=== PATIENT | female | born 1975 | race Caucasian/White ===

== ENCOUNTER 2018-03-06 09:12 | Emergency (ER) | payer MEDICAID, OTHER ==
[~2018-03-06] VITALS: Ht 162.6 cm; Wt 63.5 kg
[~2018-03-06 09:12] MED LIST: ALPR0.5T7 PO; NOR10T PO; OMEP20TA PO; SUCR1TAB PO
[2018-03-06 09:58] LABS: Basophils # (auto) 0.1 uL; Basophils % (auto) 0.7 % (0.0-2.0); Eosinophils # (auto) 0.1 uL; Eosinophils % (auto) 0.6 % (0.0-7.0); Hematocrit 48.5 % (36.0-46.0); Hemoglobin 16.6 g/dL (12.2-16.2); Lymphocytes # (auto) 1.7 uL; Lymphocytes % (auto) 15.4 % (10.0-50.0); Mean Corpuscular Hemoglobin 30.5 pg (28.0-32.0); Mean Corpuscular Hgb Conc. 34.2 g/dL (32.0-36.0); Mean Corpuscular Volume 89.3 fL (80.0-100.0); Monocytes % (auto) 9.5 % (0.0-12.0); Neutrophils # (auto) 8.1 uL; Neutrophils % (auto) 73.8 % (37.0-80.0); Nucleated Red Blood Cells % 0.1 %; Platelet Count (auto) 392 10^3/uL (140-450); Red Blood Cells 5.44 10^6/uL (4.0-5.20); Red Cell Distribution Width 15.2 % (11.8-14.3)
[2018-03-06 10:18] LABS: Albumin 4.3 g/dL (3.4-5.0); Calcium 9.6 mg/dL (8.5-10.1)
[2018-03-06 10:22] LABS: Bilirubin, Total 0.7 mg/dL (0.2-1.0); Total Protein 8.6 g/dL (6.4-8.2)
[2018-03-06 10:42] LABS: Urine Bacteria NONE SEEN /hpf (None Seen); Urine Blood 3+ /uL (Negative); Urine Mucus FEW (None Seen); Urine Specific Gravity 1.036 (1.001-1.035); Urine WBC 2 /hpf (0 - 5)
[2018-03-06] MEDS ORDERED: SODIUM CHLORIDE 0.9% 1,000 ML IV ONE ×2 (10:47)
[2018-03-06] MEDS ORDERED: LIDOCAINE VISCOUS 2% 15ML UD PO ONE (11:00)
[2018-03-06] MEDS ORDERED: ALUM & MAG HYDROX-SIMETH LIQ(MAALOX) 30 ML PO ONE (11:00)
[2018-03-06] MEDS ORDERED: DONNATAL 5ml ORAL Elix (BELLADONNA ALK-PHENOBARB) PO ONE (11:00)
[2018-03-06 11:33] VITALS: BP 156/96
[2018-03-06] MEDS ORDERED: POTASSIUM EFFERVESENT TAB 25 MEQ PO ONE (11:45)
[2018-03-06] MEDS ORDERED: KETOROLAC TROMETH 30 MG/ML 1ML VIAL IV ONE (12:00)
[2018-03-06] MEDS ORDERED: cefTRIAXone 1GM/50ML D5W 50 ML IV ONE (12:00)
[2018-03-06] MEDS ORDERED: ONDANSETRON HCL 4 MG/2 ML VIAL IV ONE (12:15)
== END 2018-03-06 13:32 | disposition home or self-care (01) ==
LOC: ER 09:12
DX: E86.0 Dehydration (principal); E87.6 Hypokalemia; R11.2 Nausea with vomiting, unspecified; J40 Bronchitis, not specified as acute or chronic; K21.9 Gastro-esophageal reflux disease without esophagitis; Z79.891 Long term (current) use of opiate analgesic; Z79.899 Other long term (current) drug therapy
CPT/HCPCS: 36415; 74176; 80053; 81001; 85025; 96361; 96365; 96375; 99285; J0696; J1885; J2405

== ENCOUNTER 2018-07-18 06:38 | Emergency (ER) | payer SELFPAY ==
[~2018-07-18] VITALS: Ht 167.6 cm; Wt 59.0 kg
[2018-07-18 07:27] LABS: Urine Pregnacy Test Negative (Negative)
[2018-07-18 07:29] LABS: Urine Amorphous Crystal FEW /hpf (None Seen); Urine Bacteria NONE SEEN /hpf (None Seen); Urine Blood 2+ /uL (Negative); Urine Mucus MODERATE (None Seen); Urine Specific Gravity 1.034 (1.001-1.035); Urine WBC 3 /hpf (0 - 5)
[2018-07-18 07:35] LABS: Amphetamine Screen, Urine NEGATIVE (NEGATIVE); Barbiturate Scree,Urine NEGATIVE (NEGATIVE); Benzodiazephine Screen, Urine POSITIVE (NEGATIVE); Cannabinoid Screen, Urine POSITIVE (NEGATIVE); Cocaine Screen, Urine NEGATIVE (NEGATIVE); Opiate Scree,Urine NEGATIVE (NEGATIVE); Phencyclidine Screen, Urine NEGATIVE (NEGATIVE)
[2018-07-18 08:06] LABS: Basophils # (auto) 0.1 uL; Basophils % (auto) 0.3 % (0.0-2.0); Eosinophils # (auto) 0 uL; Hematocrit 45.7 % (36.0-46.0); Hemoglobin 15.3 g/dL (12.2-16.2); Mean Corpuscular Hemoglobin 31.1 pg (28.0-32.0); Mean Corpuscular Hgb Conc. 33.6 g/dL (32.0-36.0); Mean Corpuscular Volume 92.5 fL (80.0-100.0); Monocytes # (auto) 0.9 uL; Monocytes % (auto) 4.8 % (0.0-12.0); Neutrophils # (auto) 17.3 uL; Neutrophils % (auto) 89.9 % (37.0-80.0); Nucleated Red Blood Cells % 0.1 %; Platelet Count (auto) 401 10^3/uL (140-450); Red Blood Cells 4.94 10^6/uL (4.0-5.20); Red Cell Distribution Width 13.5 % (11.8-14.3); White Blood Cell 19.2 10^3/uL (4.4-10.8)
[2018-07-18 08:28] LABS: Albumin 4.5 g/dL (3.4-5.0); BUN/Creatinine Ratio 19.8; Calcium 9.5 mg/dL (8.5-10.1); Magnesium 2.4 mg/dL (1.6-2.6); Potassium 3.2 mmol/L (3.5-5.1)
[2018-07-18 08:30] LABS: Bilirubin, Total 0.6 mg/dL (0.2-1.0); Total Protein 8.4 g/dL (6.4-8.2)
[2018-07-18] MEDS ORDERED: SODIUM CHLORIDE 0.9% 1,000 ML IV ONE ×2 (08:55)
[2018-07-18] MEDS ORDERED: PIPERACILLIN-TAZOB 3.375GM 100 ML IV ONE (09:00)
[2018-07-18] MEDS ORDERED: POTASSIUM EFFERVESENT TAB 25 MEQ PO ONE (09:00)
[2018-07-18] MEDS ORDERED: ONDANSETRON HCL 4 MG/2 ML VIAL ONE (09:50)
[2018-07-18] MEDS ORDERED: ONDANSETRON HCL 4 MG/2 ML VIAL IV ONE (10:00)
[2018-07-18] MEDS ORDERED: PROMETHAZINE HCL 25 MG/ML 1ML ONE (10:35)
[2018-07-18] MEDS ORDERED: PROMETHAZINE HCL 25 MG/ML 1ML IV ONE (10:45)
[2018-07-18] MEDS ORDERED: KETOROLAC TROMETH 30 MG/ML 1ML VIAL IV ONE (11:00)
[2018-07-18] MEDS ORDERED: metroNIDAZOLE 500MG/100ML 100 ML IV ONE (11:00)
[2018-07-18] MEDS ORDERED: IBUPROFEN 800 MG TAB PO ONE (12:30)
[2018-07-18 12:38] VITALS: BP 128/81
== END 2018-07-18 13:21 | disposition home or self-care (01) ==
LOC: ER 06:38
DX: K52.9 Noninfective gastroenteritis and colitis, unspecified (principal); F12.10 Cannabis abuse, uncomplicated; F17.210 Nicotine dependence, cigarettes, uncomplicated; E78.5 Hyperlipidemia, unspecified; Z98.51 Tubal ligation status; Z87.11 Personal history of peptic ulcer disease
CPT/HCPCS: 36415; 74176; 80053; 80307; 81001; 81025; 83605; 83735; 85025; 87040; 96365; 96367; 96375; 99284; J1885; J2405; J2543; J2550; J3490; J7030

== ENCOUNTER 2018-12-03 10:09 | Inpatient (IN) | payer OTHER ==
[~2018-12-03] VITALS: Ht 162.6 cm; Wt 56.5 kg
[2018-12-03 10:41] LABS: Basophils # (auto) 0.1 uL; Eosinophils # (auto) 0 uL; Hemoglobin 12.1 g/dL (12.2-16.2); Lymphocytes # (auto) 1.7 uL; Monocytes # (auto) 0.5 uL
[2018-12-03 10:43] LABS: Basophils % (auto) 0.6 % (0.0-2.0); Eosinophils % (auto) 0.3 % (0.0-7.0); Lymphocytes % (auto) 12.3 % (10.0-50.0); Mean Corpuscular Hemoglobin 29.7 pg (28.0-32.0); Mean Corpuscular Hgb Conc. 33.6 g/dL (32.0-36.0); Mean Corpuscular Volume 88.5 fL (80.0-100.0); Monocytes % (auto) 3.8 % (0.0-12.0); Neutrophils # (auto) 11.3 uL; Red Blood Cells 4.07 10^6/uL (4.0-5.20); White Blood Cell 13.6 10^3/uL (4.4-10.8)
[2018-12-03 10:45] LABS: Platelet Count (auto) 466 10^3/uL (140-450)
[2018-12-03 11:02] LABS: Urine WBC None Seen /hpf (0 - 5)
[2018-12-03 11:04] LABS: Albumin 3.3 g/dL (3.4-5.0); Calcium 8.2 mg/dL (8.5-10.1); Potassium 3.1 mmol/L (3.5-5.1)
[2018-12-03 11:07] LABS: Bilirubin, Total 0.3 mg/dL (0.2-1.0); Total Protein 6.4 g/dL (6.4-8.2)
[2018-12-03] MEDS ORDERED: SODIUM CHLORIDE 0.9% 1,000 ML IV ONE (11:08)
[2018-12-03] MEDS ORDERED: SODIUM CHLORIDE 0.9% 500 ML IVB ONE (11:08)
[2018-12-03 11:09] LABS: Urine Amorphous Crystal MOD /hpf (None Seen); Urine Bacteria NONE SEEN /hpf (None Seen); Urine Blood Negative /uL (Negative); Urine Mucus FEW (None Seen); Urine Specific Gravity 1.016 (1.001-1.035)
[2018-12-03] MEDS ORDERED: LIDOCAINE VISCOUS 2% 15ML UD PO ONE (11:15)
[2018-12-03] MEDS ORDERED: ALUM & MAG HYDROX-SIMETH LIQ(MAALOX) 30 ML PO ONE (11:15)
[2018-12-03] MEDS ORDERED: DONNATAL 5ml ORAL Elix (BELLADONNA ALK-PHENOBARB) PO ONE (11:15)
[2018-12-03] MEDS ORDERED: FAMOTIDINE 20 MG TAB PO ONE (11:15)
[2018-12-03] MEDS ORDERED: HYDROmorphone HCL 2 MG/ML VL IV ONE (11:15)
[2018-12-03] MEDS ORDERED: ONDANSETRON HCL 4 MG/2 ML VIAL IV ONE (11:30)
[2018-12-03 11:46] LABS: Beta HCG, Quantitative < 1 mlU/mL (1-3); Thyroid Stimulating Hormone 0.64 uIU/mL (0.358-3.74)
[2018-12-03] MEDS ORDERED: IOHEXOL 300 MG/ML 100ML BOTTLE IJ ONE (11:49)
[2018-12-03] MEDS ORDERED: GASTROGRAFIN 30 ML SOL ONE (11:50)
[2018-12-03] MEDS: PROMETHAZINE HCL 25 MG/ML 1ML IV PRN ×3 (12:45→22:35)
[2018-12-03] MEDS ORDERED: cloNIDine HCL 0.1 MG TAB PO ONE (13:30)
[2018-12-03] MEDS ORDERED: DexAMETHasone SOD PHOS 4 MG/1ML SDV INJ IV ONE (17:00)
[2018-12-03] MEDS ORDERED: metroNIDAZOLE 500MG/100ML 100 ML IV ONE (17:00)
[2018-12-03] MEDS ORDERED: cefTRIAXone 1GM/50ML D5W 50 ML IV ONE (17:00)
[2018-12-03] MEDS ORDERED: ACETAMINOPHEN 500 MG TAB PO PRN (17:15)
[2018-12-03] MEDS: SOD CHL 0.9%/ KCL 20MEQ 1,000 ML IV SCH (17:15)
[2018-12-03] MEDS ORDERED: NITROGLYCERIN 0.4 MG SL TAB SL PRN (17:15)
[2018-12-03] MEDS ORDERED: ENALAPRILAT 1.25 MG/ML-1ML VIAL IV PRN (17:15)
[2018-12-03] MEDS ORDERED: ONDANSETRON HCL 4 MG/2 ML VIAL IV PRN (17:15)
[2018-12-03] MEDS ORDERED: MORPHINE SULF INJ 2 MG/ML SYRINGE 1ML IV PRN (17:15)
[2018-12-03 21:00] VITALS: BP 147/80
--- NOTE | 2018-12-03 21:00 | NUR ---
Telemetry admit from ER [facility] admitted to Telemetry unit after hand off tool received. Patient oriented to primary RN, unit, room, bed, and unit policies regarding patient care and visiting hours. Patient now on continuous telemetry monitoring, tele box # 11 and telemetry reading on arrival to unit is Sinus Rhythm 85. Patient weighed by bedscale and encouraged to call if they need something. All questions and concerns addressed, patient verbalized understanding.
[2018-12-03 21:30] VITALS: BP 115/76
[2018-12-03] MEDS ORDERED: PANT40TA2 PO (21:43)
[2018-12-03] MEDS: FAMOTIDINE (10MG/ML) 2ML VL IV SCH (21:50)
[2018-12-03] MEDS: metroNIDAZOLE 500MG/100ML 100 ML IV SCH (21:50)
[2018-12-03] MEDS: MORPHINE SULF INJ 2 MG/ML SYRINGE 1ML IV PRN (21:50)
[2018-12-04] MEDS: SOD CHL 0.9%/ KCL 20MEQ 1,000 ML IV SCH ×3 (00:44→23:15)
--- NOTE | 2018-12-04 01:45 | NUR ---
Patient requested for Morphine for mod-severe pain to abdomen, however, patient asleep when RN went back to room with pain medication. Wasted Morphine with another RN. Will continue to monitor.
[2018-12-04] MEDS: MORPHINE SULF INJ 2 MG/ML SYRINGE 1ML IV PRN ×2 (02:07→05:57)
[2018-12-04 04:30] VITALS: BP 105/72
[2018-12-04 05:24] LABS: Basophils # (auto) 0.1 uL; Eosinophils # (auto) 0 uL; Eosinophils % (auto) 0.1 % (0.0-7.0); Monocytes # (auto) 0.6 uL; Platelet Count (auto) 482 10^3/uL (140-450)
[2018-12-04 05:27] LABS: Basophils % (auto) 0.6 % (0.0-2.0); Hematocrit 36.8 % (36.0-46.0); Lymphocytes # (auto) 1.8 uL; Mean Corpuscular Hemoglobin 29.7 pg (28.0-32.0); Mean Corpuscular Hgb Conc. 32.7 g/dL (32.0-36.0); Mean Corpuscular Volume 90.8 fL (80.0-100.0); Monocytes % (auto) 4.7 % (0.0-12.0); Neutrophils # (auto) 9.4 uL; Neutrophils % (auto) 79.6 % (37.0-80.0); Red Blood Cells 4.05 10^6/uL (4.0-5.20); Red Cell Distribution Width 14.5 % (11.8-14.3); White Blood Cell 11.8 10^3/uL (4.4-10.8)
[2018-12-04 05:38] LABS: Potassium 4.1 mmol/L (3.5-5.1)
[2018-12-04 05:43] LABS: Albumin 3.4 g/dL (3.4-5.0); Calcium 8.5 mg/dL (8.5-10.1)
[2018-12-04 05:44] LABS: Bilirubin, Total 0.5 mg/dL (0.2-1.0); Total Protein 6.5 g/dL (6.4-8.2)
[2018-12-04] MEDS: metroNIDAZOLE 500MG/100ML 100 ML IV SCH ×3 (05:48→21:42)
[2018-12-04] MEDS: PROMETHAZINE HCL 25 MG/ML 1ML IV PRN ×3 (05:57→18:56)
--- NOTE | 2018-12-04 07:18 | NUR ---
Hat provided for stool shaquille cx collection. Instruction given to patient when sample available. Patient verbalized understanding.
--- NOTE | 2018-12-04 07:30 | NUR ---
Opening Shift Note Assumed care of patient. Patient is awake and alert. No S/S of distress/SOB or pain. Instructed on POC and to call for assist PRN, will continue to monitor. Bed locked in the lowest position. Bed rails up x2. Call light in reach.
--- NOTE | 2018-12-04 08:54 | NUR ---
REINFORCED EDUCATION ON NEED FOR STOOL AND URINE SAMPLE. HAT IN BATHROOM. INSTRUCTED PATIENT TO CALL FOR ASSISTANCE WHEN SHE NEEDS TO USE THE RESTROOM. PATIENT VERBALIZED UNDERSTANDING.
--- NOTE | 2018-12-04 09:00 | NUR ---
STOOL AND URINE STOOL SAMPLE FOR C. DIFF AND URINE FOR DRUG SCREEN COLLECTED AND SENT TO THE LAB.
[2018-12-04 09:16] VITALS: BP 125/69
[2018-12-04] MEDS ORDERED: amLODIPine BESYLATE 5 MG TAB PO SCH (10:00)
[2018-12-04] MEDS ORDERED: ONDANSETRON ODT 4 MG TAB PO PRN (10:00)
[2018-12-04 10:03] LABS: Alcohol, Urine < 3.0 mg/dL (0-5); Amphetamine Screen, Urine NEGATIVE (NEGATIVE); Barbiturate Scree,Urine NEGATIVE (NEGATIVE); Benzodiazephine Screen, Urine NEGATIVE (NEGATIVE); Cannabinoid Screen, Urine POSITIVE (NEGATIVE); Cocaine Screen, Urine NEGATIVE (NEGATIVE); Opiate Scree,Urine POSITIVE (NEGATIVE); Phencyclidine Screen, Urine NEGATIVE (NEGATIVE)
--- NOTE | 2018-12-04 10:10 | NUR ---
RECEIVED CALL FROM LAB LAB REQUESTING TO ADD NEW ORDERS TO AM DRAW. SPOKE WITH DR. BARKLEY, PER , NEW ORDERS ARE FOR 12/05/2018. LAB AWARE.
[2018-12-04] MEDS: FAMOTIDINE (10MG/ML) 2ML VL IV SCH ×2 (10:13→21:42)
[2018-12-04] MEDS: LEVOFLOXACIN 750MG 150 ML IV SCH (10:14)
[2018-12-04] MEDS: HYDROcodone-ACET 5/325MG TAB PO PRN ×2 (10:15→18:55)
[2018-12-04] MEDS ORDERED: GOLYTELY 4L KIT PO ONE (11:15)
--- NOTE | 2018-12-04 11:40 | NUR ---
PATIENT CRYING COMPLAINING OF PAIN IN THE ABDOMEN 11/16 AND STATES, "THE PILL DOESN'T WORK WELL TO KEEP THE PAIN AWAY, I REALLY NEED THE IV MEDICATION. IT WAS WORKING. I DON'T KNOW WHY THE DOCTOR STOPPED IT." PAGED . AWAITING CALL BACK.
--- NOTE | 2018-12-04 11:52 | NUR ---
MD CALLED BACK MD AWARE OF PATIENTS COMPLAINTS. NEW ORDERS RECEIVED. ORDERS READ BACK AND VERIFIED.
[2018-12-04] MEDS ORDERED: MORPHINE SULF INJ 2 MG/ML SYRINGE 1ML IV ONE (12:00)
--- NOTE | 2018-12-04 12:00 | NUR ---
CONSENTS PATIENT IS ALERT AND ORIENTED TO PERSON, PLACE, TIME, AND SITUATION. PATIENT STATES, "THE GI DOCTOR CAME IN AND TOLD ME THAT I AM GETTING A COLONOSCOPY TOMORROW. HE TOLD ME ABOUT THE RISKS AND BENEFITS AND ANSWERED ALL OF MY QUESTIONS." CONSENTS SIGNED AND PLACED IN CHART. URSULA AT THE BEDSIDE.
[2018-12-04 13:03] VITALS: BP 116/83
[2018-12-04 17:11] VITALS: BP 133/95
--- NOTE | 2018-12-04 19:21 | NUR ---
CLOSING NOTE Patient is awake and alert. No S/S of distress/SOB or pain. Bed locked in the lowest position. Bed rails up x2. Call light in reach. Endorsed care to night RN.
--- NOTE | 2018-12-04 19:40 | NUR ---
Opening Shift Note Assumed care of patient, awake and alert. No S/S of distress/SOB or pain. Patient still drinking the rest of golytely. Bed locked in lowest position, side rails upx2, call light within reach. Instructed on POC and to call for assist PRN, will continue to monitor for changes Q1hr and PRN.
[2018-12-04 21:55] VITALS: BP 127/92
[2018-12-05] MEDS: PROMETHAZINE HCL 25 MG/ML 1ML IV PRN ×4 (01:01→23:04)
[2018-12-05] MEDS: HYDROcodone-ACET 5/325MG TAB PO PRN (03:07)
[2018-12-05 04:35] VITALS: BP 153/95
[2018-12-05 05:19] LABS: Eosinophils # (auto) 0 uL; Hemoglobin 12.3 g/dL (12.2-16.2); Lymphocytes # (auto) 1.5 uL; Lymphocytes % (auto) 15.2 % (10.0-50.0)
[2018-12-05 05:21] LABS: Basophils # (auto) 0 uL; Basophils % (auto) 0.2 % (0.0-2.0); Eosinophils % (auto) 0.3 % (0.0-7.0); Hematocrit 35.8 % (36.0-46.0); Mean Corpuscular Hemoglobin 30.3 pg (28.0-32.0); Mean Corpuscular Hgb Conc. 34.2 g/dL (32.0-36.0); Mean Corpuscular Volume 88.4 fL (80.0-100.0); Monocytes # (auto) 0.5 uL; Monocytes % (auto) 5.3 % (0.0-12.0); Neutrophils # (auto) 7.6 uL; Red Blood Cells 4.05 10^6/uL (4.0-5.20); Red Cell Distribution Width 14.3 % (11.8-14.3); White Blood Cell 9.6 10^3/uL (4.4-10.8)
[2018-12-05 05:29] LABS: Platelet Count (auto) 504 10^3/uL (140-450)
[2018-12-05] MEDS: metroNIDAZOLE 500MG/100ML 100 ML IV SCH ×3 (06:10→22:43)
--- NOTE | 2018-12-05 07:55 | NUR ---
Opening Shift Note Assumed care of patient, awake and alert. No S/S of distress/SOB or pain. Instructed on POC and to call for assist PRN, will continue to monitor for changes Q1hr and PRN.
[2018-12-05 08:44] LABS: CRP High Sensitivity 0.02 mg/dL (< 0.3); Potassium 3.6 mmol/L (3.5-5.1)
[2018-12-05 09:07] VITALS: BP 150/98
[2018-12-05] MEDS: LEVOFLOXACIN 750MG 150 ML IV SCH (09:55)
[2018-12-05] MEDS: FAMOTIDINE (10MG/ML) 2ML VL IV SCH ×2 (09:55→22:43)
--- NOTE | 2018-12-05 12:02 | NUR ---
Nutrition consult/assessment Notes please see attached link for complete assessment Est. Needs BW (56 kg): 8988-4265 kcal (25-30 kcal/kgBW), 56-67 gms pro (1.0-1.2 gms/kgBW). Will continue to monitor pertinent labs and reassess nutrient need prn Addendum: 12/05/18 at [address] Amended: Links added.
[2018-12-05 13:00] VITALS: BP 157/100
[2018-12-05 13:24] LABS: INR 1.08 (0.9-1.15); Partial Thromboplastin Time 25.7 sec (23.64-32.05)
--- NOTE | 2018-12-05 13:30 | NUR ---
Patient off unit for colonoscopy.
[2018-12-05] MEDS ORDERED: fentaNYL CITRATE 100 MCG/2 ML VL ONE (13:37)
[2018-12-05] MEDS ORDERED: MIDAZOLAM HCL 1MG/1ML-2 ML VIAL ONE (13:38)
[2018-12-05] MEDS ORDERED: MEPERIDINE HCL (25 MG/ML) 1ML VIAL ONE (13:39)
[2018-12-05] MEDS ORDERED: DexAMETHasone SOD PHOS 10MG/1ML VIAL INJ ONE (13:48)
[2018-12-05] MEDS ORDERED: PROPOFOL 10 MG/ML 20 ML IV ONE (13:48)
[2018-12-05] MEDS ORDERED: SOD CHL 0.9%/ KCL 20MEQ 1,000 ML IV SCH (14:30)
--- NOTE | 2018-12-05 14:30 | NUR ---
Patient on Unit Patient returned to unit after having colonoscopy done. Bed placed in lowest position, call light placed within reach and bed alarm on for safety. Patient encouraged to call for assistance.
[2018-12-05 15:19] LABS: Hepatitis B Surface Antibody Positive
[2018-12-05 15:57] LABS: Hepatitis A Total Antibody Positive
[2018-12-05 16:03] LABS: Hepatitis B Core Total AB Negative; Hepatitis B Surface Antigen Negative (Negative)
[2018-12-05] MEDS: SUCRALFATE 1 GM TAB PO SCH ×2 (16:32→22:43)
[2018-12-05] MEDS: MORPHINE SULFATE 4 MG/ML SYR/VIAL IV PRN ×2 (16:33→23:04)
[2018-12-05 17:12] VITALS: BP 104/71
--- NOTE | 2018-12-05 17:30 | NUR ---
Visitors at bedside.
--- NOTE | 2018-12-05 19:25 | NUR ---
Opening Shift Note Assumed care of patient, awake and alert x4. No S/S of distress/SOB. Patient is complaining of pain to the abdomen, no pain medications are due, pain management options discussed with patient. Instructed on POC and to call for assist PRN. Call light is within reach, bed is in lowest position, side rails up x2. Will continue to monitor for changes Q1hr and PRN.
--- NOTE | 2018-12-05 21:46 | NUR ---
Lab called, patient is positive for Hep C antibodies, report given by Kusum Cruz.
[2018-12-05 21:47] LABS: Hepatitis C Antibody Positive (Negative)
[2018-12-05 22:00] VITALS: BP 148/114
[2018-12-06 05:01] VITALS: BP 133/93
[2018-12-06] MEDS: MORPHINE SULFATE 4 MG/ML SYR/VIAL IV PRN ×2 (05:08→11:48)
[2018-12-06] MEDS: PROMETHAZINE HCL 25 MG/ML 1ML IV PRN ×2 (05:08→11:48)
[2018-12-06 05:31] LABS: Basophils # (auto) 0.1 uL; Basophils % (auto) 0.7 % (0.0-2.0); Eosinophils # (auto) 0.1 uL; Eosinophils % (auto) 0.8 % (0.0-7.0); Hematocrit 41.9 % (36.0-46.0); Hemoglobin 14.1 g/dL (12.2-16.2); Lymphocytes # (auto) 2.2 uL; Lymphocytes % (auto) 21.9 % (10.0-50.0); Mean Corpuscular Hemoglobin 30.1 pg (28.0-32.0); Mean Corpuscular Hgb Conc. 33.6 g/dL (32.0-36.0); Mean Corpuscular Volume 89.4 fL (80.0-100.0); Monocytes # (auto) 0.8 uL; Monocytes % (auto) 7.9 % (0.0-12.0); Neutrophils % (auto) 68.7 % (37.0-80.0); Nucleated Red Blood Cells % 0.1 %; Red Blood Cells 4.69 10^6/uL (4.0-5.20); Red Cell Distribution Width 14.6 % (11.8-14.3); White Blood Cell 10.3 10^3/uL (4.4-10.8)
[2018-12-06 05:33] LABS: Platelet Count (auto) 577 10^3/uL (140-450)
[2018-12-06 05:51] LABS: BUN/Creatinine Ratio 3.8; Calcium 9.2 mg/dL (8.5-10.1); Potassium 3.5 mmol/L (3.5-5.1)
[2018-12-06] MEDS: metroNIDAZOLE 500MG/100ML 100 ML IV SCH ×2 (06:00→13:40)
[2018-12-06] MEDS: HYDROcodone-ACET 5/325MG TAB PO PRN (06:01)
[2018-12-06] MEDS: SUCRALFATE 1 GM TAB PO SCH ×2 (06:01→11:48)
--- NOTE | 2018-12-06 07:40 | NUR ---
Opening Shift Note Assumed care of patient, awake and alert. No S/S of distress/SOB or pain. Patient states that she is feeling much better this morning compared to yesterday. Instructed on POC and to call for assist PRN, will continue to monitor for changes Q1hr and PRN.
[2018-12-06 09:35] VITALS: BP 151/104
[2018-12-06] MEDS ORDERED: PANTOPRAZOLE 40 MG TAB PO SCH (10:00)
[2018-12-06] MEDS: LEVOFLOXACIN 750MG 150 ML IV SCH (10:08)
[2018-12-06] MEDS: FAMOTIDINE (10MG/ML) 2ML VL IV SCH (10:08)
[2018-12-06 13:00] VITALS: BP 110/69
[2018-12-06] MEDS ORDERED: PANT40TA2 PO (14:18)
[2018-12-06] MEDS ORDERED: LEVO500T21 PO (14:18)
[2018-12-06] MEDS ORDERED: METR500T PO (14:18)
[2018-12-06] MEDS ORDERED: SUCR1TAB PO (14:18)
[2018-12-06 15:29] VITALS: BP 110/69
--- NOTE | 2018-12-06 15:30 | NUR ---
Discharge instructions given as ordered. Encourage to follow up with PMD as instructed. All questions and concerns addressed. Patient verbalized understanding. Medication reconciliation form completed and copy given to patient. IV removed with catheter intact and pressure dressing applied. Telemetry unit returned to [facility]. Patient ambulated to vehicle with all personal belongings, accompanied by family member. No distress noted at time of departure.
[2018-12-06 17:04] VITALS: BP 110/77
== END 2018-12-06 17:20 | disposition home or self-care (01) | DRG 872 ==
LOC: EDBD 10:09 → ER 10:10 → TELE 10:11 → TELE-EAST 20:58
PROVIDERS: ADMIT Nurse Practitioner Acute Care; ATTEND Internal Medicine
PROC: 0DBG8ZX Excision of Left Large Intestine, Via Natural or Artificial Opening Endoscopic, Diagnostic (ICD-10-PCS; 2018-12-05)
PROC: 0DBN8ZZ Excision of Sigmoid Colon, Via Natural or Artificial Opening Endoscopic (ICD-10-PCS; 2018-12-05)
PROC: 0DBP8ZZ Excision of Rectum, Via Natural or Artificial Opening Endoscopic (ICD-10-PCS; principal; 2018-12-05 13:35)
DX: A41.9 Sepsis, unspecified organism (principal); E44.0 Moderate protein-calorie malnutrition; A08.4 Viral intestinal infection, unspecified; Z68.21 Body mass index [BMI] 21.0-21.9, adult; E87.6 Hypokalemia; F12.90 Cannabis use, unspecified, uncomplicated; F17.210 Nicotine dependence, cigarettes, uncomplicated; I10 Essential (primary) hypertension; K21.0 Gastro-esophageal reflux disease with esophagitis; K57.30 Diverticulosis of large intestine without perforation or abscess without bleeding; K62.1 Rectal polyp; Z81.0 Family history of intellectual disabilities; Z82.49 Family history of ischemic heart disease and other diseases of the circulatory system; Z87.11 Personal history of peptic ulcer disease; Z98.51 Tubal ligation status
CPT/HCPCS: 36415; 71046; 74177; 80048; 80053; 80061; 80307; 81001; 83690; 83735; 84132; 84443; 84702; 85025; 85610; 85730; 86141; 86704; 86706; 86708; 86803; 87045; 87340; 87493; 87899; 93005; 96365; 96368; 96375; G0378; J0696; J1100; J1956; J2250; J2405; J2704; J3490; Q0162

== ENCOUNTER 2019-01-16 14:49 | Emergency (ER) | payer MEDICAID, OTHER ==
[~2019-01-16] VITALS: Ht 162.6 cm; Wt 52.6 kg
[~2019-01-16 14:49] MED LIST changes: -ALPR0.5T7 PO; +LEVO500T21 PO; +METR500T PO; -NOR10T PO; -OMEP20TA PO; +PANT40TA2 PO
[2019-01-16] MEDS ORDERED: SODIUM CHLORIDE 0.9% 500 ML IVB ONE (15:41)
[2019-01-16] MEDS ORDERED: MORPHINE SULFATE 4 MG/ML SYR/VIAL IV ONE ×2 (15:45→18:30)
[2019-01-16] MEDS ORDERED: FAMOTIDINE (10MG/ML) 2ML VL IV ONE (15:45)
[2019-01-16] MEDS ORDERED: ONDANSETRON HCL 4 MG/2 ML VIAL IV ONE ×2 (15:45→18:30)
[2019-01-16 16:40] LABS: Albumin 3.7 g/dL (3.4-5.0); BUN/Creatinine Ratio 7.8; Calcium 8.9 mg/dL (8.5-10.1); Potassium 4.3 mmol/L (3.5-5.1)
[2019-01-16 16:43] LABS: Bilirubin, Total 0.4 mg/dL (0.2-1.0)
[2019-01-16 16:52] LABS: Basophils # (auto) 0.1 uL; Basophils % (auto) 1.1 % (0.0-2.0); Eosinophils # (auto) 0 uL; Eosinophils % (auto) 0.2 % (0.0-7.0); Hematocrit 39.7 % (36.0-46.0); Lymphocytes # (auto) 1.5 uL; Lymphocytes % (auto) 17.4 % (10.0-50.0); Mean Corpuscular Hgb Conc. 32.7 g/dL (32.0-36.0); Mean Corpuscular Volume 85.8 fL (80.0-100.0); Monocytes # (auto) 0.3 uL; Monocytes % (auto) 3.7 % (0.0-12.0); Neutrophils # (auto) 6.6 uL; Neutrophils % (auto) 77.6 % (37.0-80.0); Platelet Count (auto) 443 10^3/uL (140-450); Red Blood Cells 4.63 10^6/uL (4.0-5.20); Red Cell Distribution Width 17.4 % (11.8-14.3); White Blood Cell 8.5 10^3/uL (4.4-10.8)
[2019-01-16 17:22] LABS: Urine WBC None Seen /hpf (0 - 5)
[2019-01-16 17:45] LABS: Urine Amorphous Crystal FEW /hpf (None Seen); Urine Bacteria NONE SEEN /hpf (None Seen); Urine Blood Negative /uL (Negative); Urine Specific Gravity 1.018 (1.001-1.035)
[2019-01-16 18:28] VITALS: BP 111/76
== END 2019-01-16 19:45 | disposition home or self-care (01) ==
LOC: EDBD 14:49 → ER 14:58
DX: R10.30 Lower abdominal pain, unspecified (principal); K21.9 Gastro-esophageal reflux disease without esophagitis; E78.5 Hyperlipidemia, unspecified; F17.210 Nicotine dependence, cigarettes, uncomplicated; F12.10 Cannabis abuse, uncomplicated; Z98.51 Tubal ligation status; Z87.11 Personal history of peptic ulcer disease
CPT/HCPCS: 36415; 74176; 80053; 81001; 82150; 83690; 85025; 94761; 96374; 96375; 96376; 99284; J2270; J2405; J3490; J7040

== ENCOUNTER 2019-01-23 22:38 | Emergency (ER) | payer MEDICAID ==
[~2019-01-23] VITALS: Ht 172.7 cm; Wt 95.3 kg
[2019-01-23 23:54] LABS: Basophils # (auto) 0.1 uL; Basophils % (auto) 0.8 % (0.0-2.0); Eosinophils # (auto) 0.1 uL; Eosinophils % (auto) 1.9 % (0.0-7.0); Hemoglobin 12.9 g/dL (12.2-16.2); Lymphocytes # (auto) 2.2 uL; Lymphocytes % (auto) 30.9 % (10.0-50.0); Mean Corpuscular Hemoglobin 28.2 pg (28.0-32.0); Mean Corpuscular Volume 85.5 fL (80.0-100.0); Monocytes # (auto) 0.6 uL; Monocytes % (auto) 8.6 % (0.0-12.0); Neutrophils # (auto) 4.1 uL; Neutrophils % (auto) 57.8 % (37.0-80.0); Nucleated Red Blood Cells % 0.1 %; Platelet Count (auto) 362 10^3/uL (140-450); Red Blood Cells 4.56 10^6/uL (4.0-5.20); Red Cell Distribution Width 17.9 % (11.8-14.3); White Blood Cell 7.2 10^3/uL (4.4-10.8)
[2019-01-24 00:08] LABS: Albumin 3.6 g/dL (3.4-5.0); Blood Urea Nitrogen 8 mg/dL (7-18); Calcium 8.6 mg/dL (8.5-10.1); Chloride 100 mmol/L (98-107); Potassium 3.8 mmol/L (3.5-5.1); Sodium 136 mmol/L (136-145)
[2019-01-24 00:11] LABS: Alanine Aminotransferase 15 U/L (13-56); Anion Gap 9 (5-15); Aspartate Aminotransferase 7 U/L (15-37); BUN/Creatinine Ratio 8.9; Carbon Dioxide 27 mmol/L (21-32); GFR African American 87 mL/min; GFR Non-African American 72 mL/min; Glucose 81 mg/dL (74-106); Magnesium 1.9 mg/dL (1.6-2.6)
[2019-01-24 00:13] LABS: Alkaline Phosphatase 48 U/L (45-117); Bilirubin, Total 0.3 mg/dL (0.2-1.0); Total Protein 6.8 g/dL (6.4-8.2)
[2019-01-24] MEDS ORDERED: SODIUM CHLORIDE 0.9% 2,000 ML IV ONE (02:30)
[2019-01-24] MEDS ORDERED: SODIUM CHLORIDE 0.9% 1,000 ML IV ONE (03:15)
[2019-01-24] MEDS ORDERED: ONDANSETRON HCL 4 MG/2 ML VIAL IV ONE (03:15)
[2019-01-24] MEDS ORDERED: KETOROLAC TROMETH 30 MG/ML 1ML VIAL IV ONE (03:15)
[2019-01-24 04:32] LABS: Alcohol, Urine < 3.0 mg/dL (0-5); Amphetamine Screen, Urine NEGATIVE (NEGATIVE); Cannabinoid Screen, Urine POSITIVE (NEGATIVE)
[2019-01-24 04:37] VITALS: BP 161/113
[2019-01-24 04:40] LABS: Barbiturate Scree,Urine NEGATIVE (NEGATIVE); Benzodiazephine Screen, Urine POSITIVE (NEGATIVE); Cocaine Screen, Urine NEGATIVE (NEGATIVE); Opiate Scree,Urine NEGATIVE (NEGATIVE); Phencyclidine Screen, Urine NEGATIVE (NEGATIVE)
== END 2019-01-24 04:52 | disposition home or self-care (01) ==
LOC: EDBD 22:38 → ER 22:43
DX: S09.90XA Unspecified injury of head, initial encounter (principal); R55 Syncope and collapse; K59.00 Constipation, unspecified; K21.9 Gastro-esophageal reflux disease without esophagitis; E78.5 Hyperlipidemia, unspecified; G43.909 Migraine, unspecified, not intractable, without status migrainosus; F17.210 Nicotine dependence, cigarettes, uncomplicated; F12.90 Cannabis use, unspecified, uncomplicated; Z90.49 Acquired absence of other specified parts of digestive tract; Z98.51 Tubal ligation status; W22.8XXA Striking against or struck by other objects, initial encounter; Y93.01 Activity, walking, marching and hiking; Y99.8 Other external cause status; Y92.89 Other specified places as the place of occurrence of the external cause
CPT/HCPCS: 36415; 70450; 74176; 80053; 80307; 82962; 83735; 84484; 85025; 96361; 96374; 96375; 99284; J1885; J2405; J7030

== ENCOUNTER 2019-02-17 19:59 | Emergency (ER) | payer MEDICAID ==
[~2019-02-17] VITALS: Ht 162.6 cm; Wt 48.1 kg
[2019-02-17 23:06] LABS: Alcohol, Urine < 3.0 mg/dL (0-5); Amphetamine Screen, Urine NEGATIVE (NEGATIVE); Barbiturate Scree,Urine NEGATIVE (NEGATIVE); Benzodiazephine Screen, Urine NEGATIVE (NEGATIVE); Cocaine Screen, Urine NEGATIVE (NEGATIVE); Opiate Scree,Urine NEGATIVE (NEGATIVE); Phencyclidine Screen, Urine NEGATIVE (NEGATIVE)
[2019-02-17 23:12] LABS: Cannabinoid Screen, Urine POSITIVE (NEGATIVE)
[2019-02-17 23:57] LABS: Basophils # (auto) 0.1 uL; Basophils % (auto) 1.1 % (0.0-2.0); Eosinophils # (auto) 0.1 uL; Eosinophils % (auto) 0.6 % (0.0-7.0); Hematocrit 37.5 % (36.0-46.0); Hemoglobin 12.2 g/dL (12.2-16.2); Lymphocytes % (auto) 17.2 % (10.0-50.0); Mean Corpuscular Hemoglobin 27.8 pg (28.0-32.0); Mean Corpuscular Hgb Conc. 32.5 g/dL (32.0-36.0); Mean Corpuscular Volume 85.5 fL (80.0-100.0); Monocytes # (auto) 0.6 uL; Monocytes % (auto) 4.8 % (0.0-12.0); Neutrophils # (auto) 9.1 uL; Neutrophils % (auto) 76.3 % (37.0-80.0); Nucleated Red Blood Cells % 0.1 %; Platelet Count (auto) 339 10^3/uL (140-450); Red Blood Cells 4.38 10^6/uL (4.0-5.20); Red Cell Distribution Width 18.7 % (11.8-14.3); White Blood Cell 11.9 10^3/uL (4.4-10.8)
[2019-02-18 00:14] LABS: Alanine Aminotransferase 13 U/L (13-56); Albumin 3.2 g/dL (3.4-5.0); Anion Gap 5 (5-15); Aspartate Aminotransferase 7 U/L (15-37); BUN/Creatinine Ratio 16.2; Blood Alcohol < 3.0 mg/dL (0-5); Blood Urea Nitrogen 11 mg/dL (7-18); Calcium 8.3 mg/dL (8.5-10.1); Carbon Dioxide 26 mmol/L (21-32); Chloride 108 mmol/L (98-107); GFR African American 121 mL/min; GFR Non-African American 100 mL/min; Glucose 99 mg/dL (74-106); Potassium 4.1 mmol/L (3.5-5.1); Sodium 139 mmol/L (136-145)
[2019-02-18 00:15] LABS: INR 0.98 (0.9-1.15); Partial Thromboplastin Time 23.4 sec (23.64-32.05)
[2019-02-18 00:17] LABS: Alkaline Phosphatase 51 U/L (45-117); Bilirubin, Total 0.2 mg/dL (0.2-1.0); Total Protein 6.5 g/dL (6.4-8.2)
[2019-02-18 01:20] LABS: Urine WBC None Seen /hpf (0 - 5)
[2019-02-18 01:27] LABS: Urine Bacteria FEW /hpf (None Seen); Urine Blood Negative /uL (Negative); Urine Specific Gravity 1.002 (1.001-1.035)
[2019-02-18 02:46] VITALS: BP 98/66
== END 2019-02-18 02:50 | disposition home or self-care (01) ==
LOC: ER 19:59 → EDBD 19:59 → ER 02-18 02:50
DX: R55 Syncope and collapse (principal); F12.10 Cannabis abuse, uncomplicated; E78.5 Hyperlipidemia, unspecified; K21.9 Gastro-esophageal reflux disease without esophagitis; Z98.51 Tubal ligation status; Z90.89 Acquired absence of other organs; F17.210 Nicotine dependence, cigarettes, uncomplicated
CPT/HCPCS: 36415; 70450; 71045; 80053; 80307; 80320; 81001; 82962; 85025; 85610; 85730; 93005

== ENCOUNTER 2019-05-07 22:01 | Emergency (ER) | payer MEDICAID ==
[~2019-05-07] VITALS: Ht 162.6 cm; Wt 53.5 kg
[2019-05-07 22:27] VITALS: BP 138/73
[2019-05-07 23:06] LABS: Basophils # (auto) 0.1 uL; Basophils % (auto) 0.7 % (0.0-2.0); Eosinophils # (auto) 0 uL; Eosinophils % (auto) 0.4 % (0.0-7.0); Hematocrit 41.6 % (36.0-46.0); Hemoglobin 13.9 g/dL (12.2-16.2); Lymphocytes # (auto) 1.8 uL; Lymphocytes % (auto) 18.8 % (10.0-50.0); Mean Corpuscular Hgb Conc. 33.4 g/dL (32.0-36.0); Mean Corpuscular Volume 92.9 fL (80.0-100.0); Monocytes # (auto) 0.4 uL; Monocytes % (auto) 4.7 % (0.0-12.0); Neutrophils # (auto) 7.2 uL; Neutrophils % (auto) 75.4 % (37.0-80.0); Platelet Count (auto) 336 10^3/uL (140-450); Red Blood Cells 4.48 10^6/uL (4.0-5.20); Red Cell Distribution Width 15.3 % (11.8-14.3); White Blood Cell 9.5 10^3/uL (4.4-10.8)
[2019-05-07 23:21] LABS: Calcium 8.5 mg/dL (8.5-10.1); Magnesium 2.3 mg/dL (1.6-2.6); Potassium 3.5 mmol/L (3.5-5.1)
[2019-05-07 23:23] LABS: BUN/Creatinine Ratio 6.3
[2019-05-07 23:26] LABS: Bilirubin, Total 0.3 mg/dL (0.2-1.0); Total Protein 7.4 g/dL (6.4-8.2)
[2019-05-07 23:27] LABS: Acetaminophen 5.7 ug/mL (10-30); Salicylate 4.3 mg/dL (2.8-20.0)
[2019-05-08] MEDS ORDERED: THIAMINE INJ 100 MG in SODIUM CHLORIDE 0.9% 1,000 ML IV ONE (02:45)
== END 2019-05-08 03:39 | disposition left against medical advice (07) ==
LOC: ER 22:01 → EDBD 22:01 → ER 05-08 03:39
DX: F10.129 Alcohol abuse with intoxication, unspecified (principal); Y90.9 Presence of alcohol in blood, level not specified; Z53.21 Procedure and treatment not carried out due to patient leaving prior to being seen by health care provider
CPT/HCPCS: 36415; 80053; 80320; 80329; 83735; 85025; J3411; J7030

== ENCOUNTER 2019-06-17 13:39 | Emergency (ER) | payer MEDICAID ==
[~2019-06-17] VITALS: Ht 157.5 cm; Wt 52.2 kg
[2019-06-17] MEDS ORDERED: SODIUM CHLORIDE 0.9% 1,000 ML IVB ONE (13:50)
[2019-06-17] MEDS ORDERED: SODIUM CHLORIDE 0.9% 500 ML IVB ONE (13:50)
[2019-06-17 13:55] VITALS: BP 74/41
[2019-06-17 14:18] LABS: Basophils # (auto) 0.1 uL; Basophils % (auto) 0.9 % (0.0-2.0); Eosinophils # (auto) 0.1 uL; Eosinophils % (auto) 0.6 % (0.0-7.0); Hematocrit 37.9 % (36.0-46.0); Hemoglobin 12.7 g/dL (12.2-16.2); Lymphocytes # (auto) 1.6 uL; Lymphocytes % (auto) 15.7 % (10.0-50.0); Mean Corpuscular Hemoglobin 30.3 pg (28.0-32.0); Mean Corpuscular Hgb Conc. 33.6 g/dL (32.0-36.0); Mean Corpuscular Volume 90.2 fL (80.0-100.0); Monocytes # (auto) 0.7 uL; Monocytes % (auto) 6.6 % (0.0-12.0); Neutrophils # (auto) 7.9 uL; Neutrophils % (auto) 76.2 % (37.0-80.0); Platelet Count (auto) 354 10^3/uL (140-450); Red Cell Distribution Width 14.4 % (11.8-14.3); White Blood Cell 10.3 10^3/uL (4.4-10.8)
[2019-06-17 14:36] LABS: Alanine Aminotransferase 14 U/L (13-56); Albumin 3.6 g/dL (3.4-5.0); Anion Gap 10 (5-15); Aspartate Aminotransferase 14 U/L (15-37); BUN/Creatinine Ratio 13.7; Blood Alcohol < 3.0 mg/dL (0-5); Blood Urea Nitrogen 18 mg/dL (7-18); Calcium 7.7 mg/dL (8.5-10.1); Carbon Dioxide 16 mmol/L (21-32); Chloride 112 mmol/L (98-107); GFR African American 57 mL/min; GFR Non-African American 47 mL/min; Glucose 101 mg/dL (74-106); Potassium 3.5 mmol/L (3.5-5.1); Sodium 138 mmol/L (136-145)
[2019-06-17 14:39] LABS: Acetaminophen 28.8 ug/mL (10-30); Alkaline Phosphatase 50 U/L (45-117); Bilirubin, Total 0.2 mg/dL (0.2-1.0); Salicylate 20.3 mg/dL (2.8-20.0); Total Protein 6.7 g/dL (6.4-8.2)
== END 2019-06-17 14:57 | disposition left against medical advice (07) ==
LOC: ER 13:39 → EDBD 13:39 → ER 14:57
DX: T50.901A Poisoning by unspecified drugs, medicaments and biological substances, accidental (unintentional), initial encounter (principal); E86.0 Dehydration; K21.9 Gastro-esophageal reflux disease without esophagitis; E78.5 Hyperlipidemia, unspecified; F17.210 Nicotine dependence, cigarettes, uncomplicated; Y92.89 Other specified places as the place of occurrence of the external cause
CPT/HCPCS: 36415; 80053; 80320; 80329; 85025; 93005; 96360; 99284; J7030; J7040

== ENCOUNTER 2019-06-23 08:40 | Inpatient (IN) | payer MEDICAID ==
[~2019-06-23] VITALS: Ht 162.6 cm; Wt 41.1 kg
[2019-06-23] MEDS ORDERED: SODIUM CHLORIDE 0.9% 1,000 ML IV ONE ×2 (10:13)
[2019-06-23] MEDS ORDERED: MORPHINE SULFATE 4 MG/ML SYR/VIAL IV ONE (10:15)
[2019-06-23] MEDS ORDERED: ONDANSETRON HCL 4 MG/2 ML VIAL IV ONE (10:15)
[2019-06-23 10:37] LABS: Basophils # (auto) 0 uL; Eosinophils # (auto) 0 uL; Monocytes # (auto) 0.4 uL
[2019-06-23 10:38] LABS: Basophils % (auto) 0.2 % (0.0-2.0); Eosinophils % (auto) 0.1 % (0.0-7.0); Hematocrit 36.1 % (36.0-46.0); Lymphocytes # (auto) 0.6 uL; Lymphocytes % (auto) 4.6 % (10.0-50.0); Mean Corpuscular Hemoglobin 29.2 pg (28.0-32.0); Mean Corpuscular Hgb Conc. 33.2 g/dL (32.0-36.0); Mean Corpuscular Volume 88.1 fL (80.0-100.0); Monocytes % (auto) 3.4 % (0.0-12.0); Neutrophils # (auto) 11.3 uL; Neutrophils % (auto) 91.7 % (37.0-80.0); Platelet Count (auto) 448 10^3/uL (140-450); Red Cell Distribution Width 14.5 % (11.8-14.3); White Blood Cell 12.3 10^3/uL (4.4-10.8)
[2019-06-23 10:44] LABS: Urine Bacteria FEW /hpf (None Seen); Urine Blood Negative /uL (Negative); Urine WBC <1 /hpf (0 - 5)
[2019-06-23 10:57] LABS: Albumin 3.7 g/dL (3.4-5.0); Amylase 29 U/L (25-115); Anion Gap 7 (5-15); Blood Urea Nitrogen 11 mg/dL (7-18); Calcium 8.6 mg/dL (8.5-10.1); Carbon Dioxide 24 mmol/L (21-32); Chloride 108 mmol/L (98-107); Glucose 133 mg/dL (74-106); Lipase 91 U/L (73-393); Potassium 3.1 mmol/L (3.5-5.1); Sodium 139 mmol/L (136-145)
[2019-06-23 11:04] LABS: Alanine Aminotransferase 20 U/L (13-56); Alkaline Phosphatase 57 U/L (45-117); Aspartate Aminotransferase 12 U/L (15-37); BUN/Creatinine Ratio 18.3; Bilirubin, Total 0.3 mg/dL (0.2-1.0); GFR African American 140 mL/min; GFR Non-African American 115 mL/min; Total Protein 7.1 g/dL (6.4-8.2)
[2019-06-23 11:55] LABS: Amphetamine Screen, Urine NEGATIVE (NEGATIVE); Barbiturate Scree,Urine NEGATIVE (NEGATIVE); Benzodiazephine Screen, Urine POSITIVE (NEGATIVE); Cannabinoid Screen, Urine POSITIVE (NEGATIVE); Cocaine Screen, Urine NEGATIVE (NEGATIVE)
[2019-06-23 12:03] LABS: Alcohol, Urine < 3.0 mg/dL (0-5); Opiate Scree,Urine NEGATIVE (NEGATIVE); Phencyclidine Screen, Urine NEGATIVE (NEGATIVE)
[2019-06-23] MEDS ORDERED: metroNIDAZOLE 500MG/100ML 100 ML IV ONE (12:30)
[2019-06-23] MEDS ORDERED: cefTRIAXone 1GM/50ML D5W 50 ML IV ONE ×2 (12:30→13:45)
[2019-06-23] MEDS ORDERED: PROMETHAZINE HCL 25 MG/ML 1ML IV ONE (13:30)
[2019-06-23] MEDS ORDERED: HYDROmorphone HCL 2 MG/ML VL IV ONE (13:30)
[2019-06-23] MEDS ORDERED: NALBUPHINE HCL 10 MG/1ml INJECTION IV PRN (13:45)
[2019-06-23] MEDS ORDERED: MORPHINE SULF INJ 2 MG/ML SYRINGE 1ML IV PRN (13:45)
[2019-06-23] MEDS ORDERED: ACETAMINOPHEN 500 MG TAB PO PRN (13:45)
[2019-06-23] MEDS ORDERED: DEXTROSE (50%) 50ML SYRG IV PRN (13:45)
[2019-06-23] MEDS ORDERED: NITROGLYCERIN 0.4 MG SL TAB SL PRN (13:45)
[2019-06-23] MEDS: SODIUM CHLORIDE 0.9% 1,000 ML IV SCH ×2 (14:04→23:38)
[2019-06-23] MEDS: PANTOPRAZOLE 40 MG TAB PO SCH ×2 (14:20→22:00)
[2019-06-23] MEDS ORDERED: HYOSCYAMINE SULF 0.125 MG ODT TAB PO PRN (15:15)
[2019-06-23] MEDS ORDERED: CIPR500S2 PO (15:32)
[2019-06-23] MEDS ORDERED: PAR20T PO (15:32)
[2019-06-23] MEDS: InsuLIN REG 1unit/0.01ml Soln (100units/ml) SC SCH ×2 (17:00→22:00)
[2019-06-23] MEDS: ACCU-CHEK COMFORT CURVE STRIP VI SCH ×2 (17:13→22:00)
[2019-06-23] MEDS: SUCRALFATE 1 GM/10 ML ORAL SUSP PO SCH ×2 (17:15→22:00)
[2019-06-23] MEDS: traMADol HCL 50 MG TAB PO PRN (18:36)
[2019-06-23] MEDS: PROMETHAZINE HCL 25 MG/ML 1ML IV PRN ×2 (18:36→23:39)
[2019-06-23 20:00] VITALS: BP 137/90
[2019-06-23] MEDS: metroNIDAZOLE 500MG/100ML 100 ML IV SCH (22:00)
[2019-06-23 22:51] VITALS: BP 137/90
[2019-06-23] MEDS: TEMAZEPAM 15 MG CAP PO PRN (23:38)
[2019-06-24] MEDS: PROMETHAZINE HCL 25 MG/ML 1ML IV PRN ×4 (05:06→22:15)
[2019-06-24] MEDS: traMADol HCL 50 MG TAB PO PRN ×2 (05:08→11:23)
[2019-06-24 05:16] VITALS: BP 110/77
[2019-06-24 05:46] LABS: Basophils # (auto) 0.1 uL; Eosinophils # (auto) 0.1 uL
[2019-06-24 05:49] LABS: Basophils % (auto) 0.5 % (0.0-2.0); Eosinophils % (auto) 0.8 % (0.0-7.0); Hemoglobin 11.8 g/dL (12.2-16.2); Lymphocytes # (auto) 1.6 uL; Lymphocytes % (auto) 11.6 % (10.0-50.0); Mean Corpuscular Hemoglobin 29.6 pg (28.0-32.0); Mean Corpuscular Hgb Conc. 33.5 g/dL (32.0-36.0); Mean Corpuscular Volume 88.2 fL (80.0-100.0); Monocytes % (auto) 7.1 % (0.0-12.0); Neutrophils # (auto) 11.1 uL; Platelet Count (auto) 456 10^3/uL (140-450); Red Blood Cells 3.97 10^6/uL (4.0-5.20); Red Cell Distribution Width 14.6 % (11.8-14.3); White Blood Cell 13.9 10^3/uL (4.4-10.8)
[2019-06-24] MEDS: metroNIDAZOLE 500MG/100ML 100 ML IV SCH ×3 (06:00→21:10)
[2019-06-24] MEDS: SUCRALFATE 1 GM/10 ML ORAL SUSP PO SCH ×4 (06:46→21:09)
[2019-06-24] MEDS: InsuLIN REG 1unit/0.01ml Soln (100units/ml) SC SCH ×2 (06:47→11:30)
[2019-06-24] MEDS: ACCU-CHEK COMFORT CURVE STRIP VI SCH ×2 (06:47→11:45)
[2019-06-24 08:00] VITALS: BP 148/94
[2019-06-24 08:22] VITALS: BP 148/94
[2019-06-24 08:40] VITALS: BP 148/94
[2019-06-24] MEDS: cefTRIAXone 1GM/50ML D5W 50 ML IV SCH (09:07)
[2019-06-24] MEDS: SODIUM CHLORIDE 0.9% 1,000 ML IV SCH ×2 (09:08→23:36)
[2019-06-24] MEDS: PANTOPRAZOLE 40 MG TAB PO SCH ×2 (09:08→21:09)
[2019-06-24] MEDS ORDERED: SUCR1TAB PO (11:45)
[2019-06-24] MEDS ORDERED: PANT40TA2 PO (11:45)
[2019-06-24 13:00] VITALS: BP 148/98
[2019-06-24 17:03] VITALS: BP 131/90
[2019-06-24] MEDS: TEMAZEPAM 15 MG CAP PO PRN (21:10)
[2019-06-24] MEDS ORDERED: ALPRAZolam 0.25 MG TAB PO ONE (22:45)
[2019-06-25 04:39] VITALS: BP 126/89
[2019-06-25] MEDS: SUCRALFATE 1 GM/10 ML ORAL SUSP PO SCH ×2 (06:01→11:32)
[2019-06-25] MEDS: PROMETHAZINE HCL 25 MG/ML 1ML IV PRN ×2 (06:08→11:32)
[2019-06-25] MEDS: metroNIDAZOLE 500MG/100ML 100 ML IV SCH ×2 (06:39→14:00)
[2019-06-25] MEDS: SODIUM CHLORIDE 0.9% 1,000 ML IV SCH (06:39)
[2019-06-25 08:00] VITALS: BP 103/66
[2019-06-25 09:00] VITALS: BP 103/66
[2019-06-25] MEDS: cefTRIAXone 1GM/50ML D5W 50 ML IV SCH (09:05)
[2019-06-25] MEDS: PANTOPRAZOLE 40 MG TAB PO SCH (09:06)
[2019-06-25 12:25] VITALS: BP 124/82
[2019-06-25 13:46] VITALS: BP 124/82
== END 2019-06-25 15:50 | disposition home or self-care (01) | DRG 243 ==
LOC: EDBD 08:40 → ER 08:40 → OVERFLOW 08:41 → WEST WING 17:53 → TELE-WESTW 20:43
PROVIDERS: ADMIT Internal Medicine; ATTEND Internal Medicine
DX: K21.9 Gastro-esophageal reflux disease without esophagitis (principal); A08.4 Viral intestinal infection, unspecified; E78.5 Hyperlipidemia, unspecified; E86.0 Dehydration; F12.90 Cannabis use, unspecified, uncomplicated; F17.210 Nicotine dependence, cigarettes, uncomplicated; F41.9 Anxiety disorder, unspecified; G89.4 Chronic pain syndrome; K44.9 Diaphragmatic hernia without obstruction or gangrene; R73.9 Hyperglycemia, unspecified; K57.30 Diverticulosis of large intestine without perforation or abscess without bleeding; E87.6 Hypokalemia; K22.70 Barrett's esophagus without dysplasia; Z81.0 Family history of intellectual disabilities; Z82.49 Family history of ischemic heart disease and other diseases of the circulatory system; Z87.11 Personal history of peptic ulcer disease; Z83.3 Family history of diabetes mellitus; Z90.49 Acquired absence of other specified parts of digestive tract
CPT/HCPCS: 36415; 71045; 74176; 80053; 80307; 81001; 81025; 82150; 82962; 83036; 83690; 84132; 84484; 85025; 87081; 93005; 96361; 96365; 96367; 96375; G0378; J0696; J2405; J3490